=== PATIENT | female | born 1950 | race Asian ===

== ENCOUNTER 2020-02-10 17:39 | Emergency (ER) | payer BC, OTHER ==
[~2020-02-10] VITALS: Ht 162.6 cm; Wt 67.1 kg
[2020-02-10 18:11] VITALS: Ht 162.6 cm; Wt 67.1 kg
[2020-02-10 20:57] VITALS: BP 186/65
== END 2020-02-10 20:57 | disposition home or self-care (01) ==
LOC: ED 17:39
DX: S01.01XA Laceration without foreign body of scalp, initial encounter (principal); Z90.49 Acquired absence of other specified parts of digestive tract; W20.8XXA Other cause of strike by thrown, projected or falling object, initial encounter; Y93.89 Activity, other specified; Y92.89 Other specified places as the place of occurrence of the external cause; Y99.8 Other external cause status
CPT/HCPCS: 90715